=== PATIENT | female | born 1955 | race Caucasian/White ===

== ENCOUNTER → 2021-03-04 | Outpatient (CLI) | payer MEDICARE, OTHER | LOC: KOH-I 14:23 | DX: M79.602 Pain in left arm (principal); R93.6 Abnormal findings on diagnostic imaging of limbs | CPT/HCPCS: 73030; 73060; 73070 ==

== ENCOUNTER 2021-07-01 18:24 | Emergency (ER) | payer MEDICARE, OTHER ==
[2021-07-01 20:04] LABS: HEMOGLOBIN 9.9 gm/dl (12.3-15.3); RED BLOOD COUNT 3.14 M/UL (4.00-5.10); WHITE BLOOD COUNT 8.3 K/UL (4.5-11.0)
[2021-07-01 20:56] LABS: BUN/CREATININE RATIO 16 (0-10)
[2021-07-02] MEDS ORDERED: OMNICEF 300 MG300 MG PO (01:02)
== END 2021-07-02 02:24 | disposition home or self-care (01) ==
LOC: ER1 18:24
PROVIDERS: Physician Assistant
DX: N39.0 Urinary tract infection, site not specified (principal); E86.0 Dehydration; E78.5 Hyperlipidemia, unspecified; I11.9 Hypertensive heart disease without heart failure; F17.200 Nicotine dependence, unspecified, uncomplicated
CPT/HCPCS: 80053; 81001; 82550; 82553; 83874; 84484; 85025; 93005; 96374; 99285; J0696; Q9967